=== PATIENT | female | born 1945 | race Caucasian/White ===

== ENCOUNTER 2016-05-13 16:33 | Emergency (ER) | payer OTHER ==
[2016-05-13] MEDS ORDERED: TYLENOL PO ONE (18:32)
[2016-05-13] MEDS ORDERED: AUGMENTIN PO ONE (18:32)
[2016-05-13] MEDS ORDERED: ULTRAM PO ONE (18:32)
--- NOTE | 2016-05-13 18:35 | PROVIDER DOCUMENTATION ---
HPI-Musculoskeletal Pain/Inj - GENERAL Source: patient - HX OF PRESENT ILLNESS-MUSKULOSKELTAL Quality of Pain: reports: aching Severity in ED: mild Onset/Duration: last week Timing: still present Modifying Factors: improves with: nothing Any recent injury?: No Locality of Occurance: Home Similar Symptoms Previously?: Yes Recently seen or treated by another doctor?: No - FALL INJURY Location of Pain/Injury: reports: none - LOWER EXTREMITY PAIN/INJURY Lower Extremities Pain: 3rd toe: right (pain ) Context / Method of Injury: reports: unknown Associated Symptoms: reports: weakness in legs/feet (R foot). denies: loss of bladder control, loss of bowel control, lower back pain, muscle spasms, numbness in legs/feet, sensory/motor loss, tingling in legs/feet <Nathalie Weaver - Last Filed: 05/13/16 18:35> <Osbaldo Tran - Last Filed: 05/13/16 18:42> - GENERAL Chief Complaint: Extremity Pain Stated Complaint: TOE PAIN Time Seen by Provider: 05/13/16 18:17 - HX OF PRESENT ILLNESS-MUSKULOSKELTAL Nature of Presenting Problem: Pt is 70 y/o F presents to the ED with pain in R 3rd toe. Pt states pain has been present for one week. On exam of toe, Pt's toenail have over grown to the point of the toenail has encapsulated and strangulated the toe. (Nathalie Weaver) Review of Systems - Adult - REVIEW OF SYSTEMS - ADULT Constitutional: denies: chills, fever Eyes: denies: blurred vision, double vision Ears, Nose, Mouth & Throat: denies: ear pain, nose pain, throat pain Cardiovascular: denies: chest pain, heart murmur, irregular heart rate Respiratory: denies: cough, shortness of breath, wheezing Gastrointestinal: denies: abdominal pain, diarrhea, nausea, vomiting Genitourinary: denies: dysuria, hematuria Musculoskeletal: reports: other (R 3rd toe pain). denies: bone pain, joint pain , neck pain Integumentary: denies: hives, itching Neurological: denies: dizziness/vertigo, headache/migraines Psychiatric: reports: no symptoms reported Endocrine: reports: no symptoms reported Hematologic/Lymphatic: reports: no symptoms reported Allergic/Immunologic: reports: no symptoms reported All Other Systems: Reviewed and Negative <Nathalie Weaver - Last Filed: 05/13/16 18:35> Past History - Adult - PAST MEDICAL HISTORY-ADULT Review of Records: reports: Nursing Assessment Review, Medications Reviewed, Social history reviewed & non-contributory. Major Childhood Illnesses: reports: denies history Cardiovascular: reports: HTN, hyperlipidemia Respiratory: reports: denies history Gastrointestinal: reports: denies history Obstetrical/Gynecological: reports: denies history Genitourinary: reports: denies history Musculoskeletal: reports: denies history Neurological: reports: denies history Endocrine/Immune: reports: denies history Other Conditions: reports: denies history - PRIOR SURGERIES/PROCEDURES Surgical/Procedure History: reports: hysterectomy - IMMUNIZATION STATUS Childhood Immunizations: See Nurse Assessment Flu Vaccine: See Nurse Assessment - FAMILY HISTORY Family History: reviewed, not pertinent - SOCIAL HISTORY Smoking: denies Substance Use: denies Living Situation: family <Nathalie Weaver - Last Filed: 05/13/16 18:35> Physical Exam-Injury Related - Physical Exam-Injury Related Initial Vital Signs Reviewed: Yes General Appearance: appears well, alert, no apparent distress Eyes: PERRL/EOMI, pink conjunctivae, fundi clear, no AV nicking Head, Ears, Nose, Mouth & Throat: normocephalic/atraumatic, moist mucous membranes, normal ENT inspection, TMs normal, pharynx normal Neck: full range of motion, supple, normal inspection, pain with axial compression Respiratory: chest non-tender, lungs clear, normal breath sounds, no pleuratic chest pain, no respiratory distress, no accessory muscle use Cardiovascular: normal peripheral pulses, regular rate, rhythm, no edema, no gallop, no JVD, no murmur Abdominal Exam: normal bowel sounds, non tender, soft, no organomegaly, no pulsatile mass Lymphatic: no adenopathy Back Exam: normal inspection, no CVA tenderness, no vertebral tenderness Extremity: normal range of motion, no calf tenderness, swelling (R 3rd toe), tenderness (R 3rd toe) Integumentary: normal color, warm/dry, other (necrotic tip of R 3rd toe) 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 II-XII nml as tested, grossly normal, no motor/sensory deficits Psych/Mental Status: normal mood/affect, normal thought content, normal thought process, oriented x 3 <Nathalie Weaver - Last Filed: 05/13/16 18:35> Progress <Nathalie Weaver - Last Filed: 05/13/16 18:35> <Osbaldo Tran - Last Filed: 05/13/16 18:42> - PLAN OF CARE/RESULTS Progress/Plan/Lab Results: Orders Category Date Time Status Acetaminophen [Tylenol] Med 05/13/16 18:32 Discontinued 650 mg PO NOW ONE Amoxicillin/Pot Clavulanate [Augmentin] Med 05/13/16 18:32 Discontinued 875 mg PO NOW ONE Tramadol [Ultram] Med 05/13/16 18:32 Discontinued 50 mg PO NOW ONE Vital Signs - 24 hr 05/13/16 16:38 Temperature 97.6 F Pulse Rate 73 Respiratory 18 Rate Blood Pressure 133/072 O2 Sat by Pulse 100 Oximetry (Nathalie Weaver) Departure <Nathalie Weaver - Last Filed: 05/13/16 18:35> - Departure Time of Disposition Order: 18:30 Certified Medical Emergency: Emergent <Osbaldo Tran - Last Filed: 05/13/16 18:42> - Departure DIAGNOSIS: Autoamputation of toe or finger Cellulitis of toe Qualifiers: Laterality: right Qualified Code(s): L03.031 - Cellulitis of right toe Disposition: HOME 01 Condition: Fair Additional Instructions: CALL ORTHO IN AM FOR APPOINTMENT SOON POSSIBLE WEAR LESS RESTRICTIVE SHOES AND ELEVATE WHEN POSSIBLE Prescriptions: Amoxicillin/Pot Clavulanate [Augmentin] 875 mg PO Q12HR #20 tablet Tramadol [Ultram] 1 - 2 tab PO Q8H PRN PRN #30 tablet PRN Reason: Pain Referrals: Patrice Walden MD [Primary Care Provider] - Instructions: Amoxicillin capsules or tablets, Tramadol tablets Attestation - Scribe Verification/Attestation Scribe:: Nathalie Weaver Acting as Scribe for:: Osbaldo Tran Scribe documention review:: This chart was documented by a scribe and accurately reflects the service the provider performed and the decisions made by the provider. <Nathalie Weaver - Last Filed: 05/13/16 18:35> Physician Attestation
[2016-05-13 19:50] VITALS: BP 133/74
== END 2016-05-13 19:50 | disposition home or self-care (01) ==
LOC: P.ED 16:33
DX: L03.031 Cellulitis of right toe (principal); M79.674 Pain in right toe(s); L60.8 Other nail disorders; I10 Essential (primary) hypertension; E78.5 Hyperlipidemia, unspecified; Z79.899 Other long term (current) drug therapy; Z79.82 Long term (current) use of aspirin; Z79.1 Long term (current) use of non-steroidal anti-inflammatories (NSAID)
CPT/HCPCS: 99282